=== PATIENT | male | born 1965 | race Two or more races ===

== ENCOUNTER → 2020-07-09 | Outpatient (CLI) | payer OTHER ==
--- NOTE | 2020-07-09 15:40 | RAD ---
Chest radiograph 07/09/2020 12:00 AM INDICATION: Asthma COMPARISON: None available TECHNIQUE: Frontal and lateral views of the chest are provided. FINDINGS: The cardiomediastinal silhouette is within normal limits. There are no pleural effusions. There is no pulmonary vascular congestion. There is no pneumothorax. The lungs are clear. No significant osseous abnormality is identified. IMPRESSION: No acute cardiopulmonary process. Electronically signed by: Tanika Montgomery MD (07/09/2020 3:37 PM) [id number]
== END | disposition home or self-care (01) ==
LOC: RAD 12:30
PROVIDERS: ATTEND Family Medicine
DX: J45.909 Unspecified asthma, uncomplicated (principal)
CPT/HCPCS: 71046

== ENCOUNTER → 2021-07-09 | Outpatient (CLI) | payer OTHER ==
--- NOTE | 2021-07-10 08:36 | KCIC ---
Bilateral lower extremity ABIs, and bilateral lower extreme knee arterial duplex ultrasound study wit hout comparison for claudication, hypertension, diabetes, or 45 pack year smoking history. TECHNIQUE AND FINDINGS: Bilateral ABIs are obtained along with real-time grayscale and color spectral Doppler evaluation images of the bilateral lower extremity arterial trees. The CK on the right is 1.1 and on the left 1.1. These are normal.The bilateral common femoral, deep femoral, superficial femoral, popliteal, posterior tibial, peroneal, anterior tibial, and dorsalis pe dis arteries are all patent, and demonstrate normal phasicity, with no focal velocity elevations to s uggest hemodynamically significant stenosis in any distribution. IMPRESSION: 1. Normal bilateral ABIs. 2. Normal lower extremity arterial duplex ultrasound study. Electronically signed by: Ceasar Jalloh MD (07/10/2021 8:33 AM) [id number]
== END ==
LOC: KCIC US 12:23
PROVIDERS: ATTEND Family Medicine
DX: I73.9 Peripheral vascular disease, unspecified (principal)
CPT/HCPCS: 93922; 93925